=== PATIENT | female | born 1965 | race Caucasian/White ===

== ENCOUNTER 2017-10-06 17:53 | Observation (INO) | payer OTHER ==
[~2017-10-06] VITALS: Ht 172.7 cm; Wt 115.5 kg
[2017-10-06 18:00] VITALS: BP 143/93; PULSE 87; RESP 16; TEMP 98.2; O2SAT 100
[2017-10-06] MEDS ORDERED: HYDR12.57 PO (19:44)
[2017-10-06] MEDS ORDERED: PROZ20CA11 PO (19:44)
[2017-10-06] MEDS ORDERED: ACETAMINOPHEN/HYDROcodone 325 MG/5 MG TAB PO ONE (19:45)
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
[2017-10-06] MEDS ORDERED: SODIUM CHLORIDE 0.9% FLUSH 10 ML FLUSH IV FLUSH PRN (21:30)
[2017-10-06] MEDS ORDERED: NALOXONE HCL 0.4 MG/ML AMP IV PUSH PRN (21:30)
[2017-10-06 21:36] LABS: AUTOMATED NEUTROPHIL # 7.5 TH/MM3 (1.8-7.7); BASOPHIL % 0.3 % (0.0-2.0); EOSINOPHIL % 0.3 % (0.0-4.0); HEMATOCRIT 32.6 % (35.0-46.0); HEMOGLOBIN 10.2 GM/DL (11.6-15.3); LYMPH % 14.7 % (9.0-44.0); LYMPHOCYTE # 1.4 TH/MM3 (1.0-4.8); MEAN CELL VOLUME 77.8 FL (80.0-100.0); MEAN CORPUSCULAR HEMOGLOBIN 24.4 PG (27.0-34.0); MEAN CORPUSCULAR HGB CONC 31.3 % (32.0-36.0); MEAN PLATELET VOLUME 7.9 FL (7.0-11.0); MONO % 5.8 % (0.0-8.0); MONOCYTE # 0.5 TH/MM3 (0-0.9); NEUT % 78.9 % (16.0-70.0); PLATELET COUNT 382 TH/MM3 (150-450); RED BLOOD COUNT 4.19 MIL/MM3 (4.00-5.30); WHITE BLOOD COUNT 9.4 TH/MM3 (4.0-11.0)
[2017-10-06 21:53] LABS: PROTHROMBIN TIME - PATIENT 10.1 SEC (9.8-11.6)
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
[2017-10-06 22:00] LABS: BICARBONATE 26.4 MEQ/L (21.0-32.0); CALCIUM 9.1 MG/DL (8.5-10.1); CREATININE 0.67 MG/DL (0.50-1.00); MAGNESIUM 2.3 MG/DL (1.5-2.5)
[2017-10-06] MEDS: MORPHINE SULFATE 2 MG/ML INJ IV PUSH PRN (22:33)
[2017-10-06 23:05] VITALS: BP 121/56; PULSE 71; RESP 16; O2SAT 99
[2017-10-07] VITALS (7 sets, daily range): BP systolic 102–125; BP diastolic 58–74; PULSE 64–80; RESP 16–20; TEMP 97.6–98; O2SAT 95–98
[2017-10-07] MEDS ORDERED: POTASSIUM CHLORIDE 20 MEQ CONTROLLED RELEASE TAB PO ONE (01:45)
[2017-10-07] MEDS: MORPHINE SULFATE 2 MG/ML INJ IV PUSH PRN ×3 (01:52→09:55)
[2017-10-07] MEDS ORDERED: MORPHINE SULFATE 2 MG/ML INJ IV PUSH ONE (06:00)
[2017-10-07 06:14] LABS: AUTOMATED NEUTROPHIL # 4.8 TH/MM3 (1.8-7.7); BASOPHIL # 0.1 TH/MM3 (0-0.2); BASOPHIL % 0.8 % (0.0-2.0); EOSINOPHIL # 0.1 TH/MM3 (0-0.4); EOSINOPHIL % 1.5 % (0.0-4.0); HEMATOCRIT 29.3 % (35.0-46.0); HEMOGLOBIN 9.9 GM/DL (11.6-15.3); LYMPH % 26.2 % (9.0-44.0); LYMPHOCYTE # 2.1 TH/MM3 (1.0-4.8); MEAN CELL VOLUME 77.9 FL (80.0-100.0); MEAN CORPUSCULAR HEMOGLOBIN 26.5 PG (27.0-34.0); MEAN PLATELET VOLUME 7.8 FL (7.0-11.0); MONOCYTE # 0.7 TH/MM3 (0-0.9); NEUT % 62.5 % (16.0-70.0); PLATELET COUNT 323 TH/MM3 (150-450); RED BLOOD COUNT 3.76 MIL/MM3 (4.00-5.30); RED CELL DISTRIBUTION WIDTH 15.6 % (11.6-17.2); WHITE BLOOD COUNT 7.8 TH/MM3 (4.0-11.0)
[2017-10-07 06:25] LABS: BICARBONATE 29.3 MEQ/L (21.0-32.0); CALCIUM 8.8 MG/DL (8.5-10.1)
[2017-10-07 06:29] LABS: CREATININE 0.67 MG/DL (0.50-1.00)
[2017-10-07] MEDS ORDERED: SODIUM CHLORIDE 0.9% FLUSH 10 ML FLUSH IV FLUSH SCH (09:00)
[2017-10-07] MEDS ORDERED: METOPROLOL TARTRATE 25 MG TAB PO PRN (10:00)
[2017-10-07] MEDS ORDERED: SODIUM CHLORID 0.9% 500 ML IV PRN (10:00)
[2017-10-07] MEDS ORDERED: POVIDONE IODINE 5% (ANTISEPSIS KIT) 4 APPLICATIONS EACH NARE PRN (10:00)
[2017-10-07] MEDS ORDERED: CHLORHEXIDINE GLUCONATE 2 % 1 PACK (2 CLOTHS) TOPICAL PRN (10:00)
[2017-10-07] MEDS ORDERED: LACTATED RINGER'S 1000 ML IV PRN (10:00)
[2017-10-07] MEDS ORDERED: HYDR-3580 PO (10:22)
[2017-10-07] MEDS ORDERED: ACETAMINOPHEN 1000 MG/100 ML 100 ML IV ONE (10:25)
[2017-10-07] MEDS ORDERED: KETAMINE HCL 10 MG/5 ML SYRINGE IV PUSH ONE (10:26)
[2017-10-07] MEDS ORDERED: GENTAMICIN SULFATE 80 MG/2 ML VIAL ONE (10:46)
[2017-10-07] MEDS ORDERED: BUPIVACAINE/EPINEPHRINE 0.25% 50 ML VIAL ONE (10:46)
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
--- NOTE | 2017-10-07 11:28 | PD.OP ---
cc: Faheem Gold MD Operative Report Date of Surgery: Oct 07, 2017 Preoperative Diagnosis: Comminuted displaced left distal radius fracture Postoperative Diagnosis: Procedure: Open reduction internal fixation left distal radius fracture Anesthesia: Gen. Surgeon: Faheem Gold Fisher Troll Line(s): BRAEDEN Reyes PA-C The surgical procedure was assisted by my physician registered dental assistant rda. My P.A. presence was necessary throughout this case for the manipulation and positioning of the surgical extremity. My P.A. was assisting me throughout the duration of this procedure. The skill set of a physician registered dental assistant rda was medically necessary to complete this procedure. During the surgical case the neurosurgical physician assistant was working at the back table and the physician registered dental assistant rda was directly assisting me. Operation and Findings: Implants used: ITS Plan of activity: Nonweightbearing on operative arm Patient was seen and evaluated preoperatively and found to have a displaced distal radius fracture. Informed consent was obtained after detailed discussion of risk and benefits including bleeding, infection, injury to arteries, nerves, and blood vessels, weakness and numbness of hand, wrist stiffness, wrist arthritis and tendon rupture. Informed consent was obtained. Patient received IV antibiotics prior to incision. Timeout procedure was performed. Operative extremity was prepped with alcohol followed by Hibiclens and draped usual sterile fashion. A standard volar approach to the distal radius was utilized. A 3 inch incision was made over the FCR tendon. Tendon sheath was opened. Pronator quadratus was elevated up. The fracture site was now visualized. The fracture did have intra-articular extension. Traction was applied. The articular surface was reduced. Fracture fragments were manipulated to achieve excellent reduction. The articular surface and radial styloid fragments reduced into excellent alignment. K wires were used to hold provisional fixation. Fluoroscopy confirmed appropriate alignment of fracture. A variable angle distal radius plate was selected. Plate was provisionally fixed to bone with K wires. 2.7 and 2.4 cortical screws were used to compress plate to bone. Fluoroscopy confirmed appropriate alignment of fracture with well-placed hardware. Multiple 2.4 locking screws were now placed distally. Screws were predrilled and measured for appropriate length. 2 additional screws were placed into the shaft. K wires were removed. Final fluoroscopy revealed excellent of fracture with well-placed hardware. The wound was thoroughly irrigated with sterile saline. Subcutaneous tissue was closed with 3-0 Vicryl and skin was closed with 3-0 nylon. Sterile dressings were applied with Xeroform, 4 x 4, soft roll , and a well padded volar splint. Patient was awakened and transferred to recovery room in stable condition Faheem Gold MD Oct 07, 2017 11:28
[2017-10-07] MEDS ORDERED: MORPHINE SULFATE 4 MG/ML INJ IV PUSH PRN (11:30)
[2017-10-07] MEDS ORDERED: ACETAMINOPHEN/HYDROcodone 325 MG/7.5 MG TAB PO PRN (11:30)
[2017-10-07] MEDS ORDERED: MIDAZOLAM HCL 2 MG/2 ML VIAL ONE (11:52)
[2017-10-07] MEDS ORDERED: *morphine SULFATE 10 MG/ML PERIprocedure ONLY ONE (11:58)
[2017-10-07] MEDS ORDERED: ONDANSETRON HCL 4 MG/2 ML VIAL IV ONE (12:00)
[2017-10-07] MEDS ORDERED: LIDOCAINE HCL 1% PF 5 ML SYRINGE OTHER ONE (12:00)
[2017-10-07] MEDS ORDERED: DEXAMETHASONE SOD PHOS 4 MG/ML VIAL IV ONE (12:00)
[2017-10-07] MEDS ORDERED: ePHEDrine/NS 25 MG/5 ML SYRINGE IV ONE (12:00)
[2017-10-07] MEDS ORDERED: PROPOFOL 200 MG/20 ML AMP IV ONE (12:00)
[2017-10-07] MEDS: DIMETHICONE/OXYBENZONE/PADMIATE LIP BALM 4.25 GM TOPICAL SCH ×2 (12:07→12:52)
[2017-10-07] MEDS ORDERED: DIMETHICONE/OXYBENZONE/PADMIATE LIP BALM 4.25 GM TOPICAL ONE (12:07)
[2017-10-07] MEDS ORDERED: DO NOT ADM ANY ANTICOAGULANT DRUGS PRN (12:30)
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
[2017-10-07] MEDS ORDERED: POTASSIUM CHLORIDE 10 MEQ CONTROLLED RELEASE TAB PO ONE (13:30)
--- NOTE | 2017-10-07 23:32 | EKG ---
Date Performed: 10/06/2017 Time Performed: 21:41:58 PTAGE: 52 years EKG: Sinus rhythm MODERATE VOLTAGE CRITERIA FOR LVH, CONSIDER NORMAL VARIANT PROLONGED QT INTERVAL ABNORMAL ECG NO PREVIOUS TRACING DOCTOR: Mike Brody Interpretating Date/Time 10/07/2017 23:31:07
[2017-10-08] MEDS ORDERED: FLUoxetine HCL 20 MG CAP PO SCH (09:00)
== END 2017-10-07 13:10 | disposition home or self-care (01) ==
LOC: PHED 17:53 → PHEDA 21:33 → PHEDH 10-07 02:04 → HSDI 10-07 10:17
PROVIDERS: ADMIT Hospitalist; ATTEND Hospitalist
DX: S52.572A Other intraarticular fracture of lower end of left radius, initial encounter for closed fracture (principal); I45.81 Long QT syndrome; I10 Essential (primary) hypertension; Z85.72 Personal history of non-Hodgkin lymphomas; W01.0XXA Fall on same level from slipping, tripping and stumbling without subsequent striking against object, initial encounter
CPT/HCPCS: 01830; 25608; 29125; 71045; 73090; 73100; 73110; 76000; 80048; 83735; 85025; 85610; 85730; 93005; 96374; 96376; 99285; C1713; G0378; J0131; J1100; J1580; J2250; J2270; J2405; J3010; J7120